=== PATIENT | female | born 1965 | race Caucasian/White ===

== ENCOUNTER 2017-09-06 02:03 | Emergency (ER) | payer OTHER ==
[~2017-09-06] VITALS: Ht 170.2 cm; Wt 81.8 kg
[2017-09-06 02:05] VITALS: BP 126/70; TEMP 98.1
[2017-09-06] MEDS ORDERED: LEXAPRO20 MG PO (02:08)
[2017-09-06] MEDS ORDERED: SEROQUEL50 MG PO (02:08)
[2017-09-06] MEDS ORDERED: ATIVAN 1MG T1 MG/TAB PO (02:08)
[2017-09-06] MEDS ORDERED: NORCO 325 MG-51 TAB PO (02:09)
[2017-09-06 03:01] VITALS: PULSE 74
== END 2017-09-06 03:10 | disposition home or self-care (01) ==
LOC: COL.ER 02:03
DX: S52.122A Displaced fracture of head of left radius, initial encounter for closed fracture (principal); S63.502A Unspecified sprain of left wrist, initial encounter; S63.501A Unspecified sprain of right wrist, initial encounter; F32.9 Major depressive disorder, single episode, unspecified; F41.9 Anxiety disorder, unspecified; W10.9XXA Fall (on) (from) unspecified stairs and steps, initial encounter

== ENCOUNTER → 2020-06-23 | Outpatient (CLI) | payer OTHER ==
[~2020-06-23] MED LIST: ATIVAN 1MG T1 MG/TAB PO; LEXAPRO20 MG PO; NORCO 325 MG-51 TAB PO; SEROQUEL50 MG PO
== END ==
LOC: COL.RAD 08:17
DX: R12 Heartburn (principal)

== ENCOUNTER → 2020-06-25 | Outpatient (CLI) | payer OTHER | LOC: COL.RAD 07:40 | DX: R11.2 Nausea with vomiting, unspecified (principal) | CPT/HCPCS: A9541 ==

== ENCOUNTER → 2020-06-27 | Outpatient (CLI) | payer OTHER | LOC: COL.RAD 09:49 | DX: M67.823 Other specified disorders of tendon, right elbow (principal) ==

== ENCOUNTER → 2021-02-06 | Outpatient (CLI) | payer OTHER | LOC: COL.RAD 08:32 | DX: G90.09 Other idiopathic peripheral autonomic neuropathy (principal); R44.9 Unspecified symptoms and signs involving general sensations and perceptions | CPT/HCPCS: A9585 ==

== ENCOUNTER → 2021-08-19 | Outpatient (CLI) | payer OTHER | LOC: COL.RAD 11:53 | DX: E53.8 Deficiency of other specified B group vitamins (principal); M47.27 Other spondylosis with radiculopathy, lumbosacral region ==

== ENCOUNTER → 2022-02-15 | Outpatient (CLI) | payer OTHER | LOC: COL.RAD 10:39 | DX: M25.521 Pain in right elbow (principal) | CPT/HCPCS: A9575; Q9967 ==